=== PATIENT | female | born 1950 | race Caucasian/White ===

== ENCOUNTER → 2017-06-25 | Outpatient (CLI) | payer OTHER ==
[~2017-06-25] MED LIST: CITA20TA5 PO; DILT360C26 PO; IRBE300T16 PO; METO-93 PO
== END | disposition home or self-care (01) ==
LOC: CFH 08:37
PROVIDERS: ATTEND Specialist
DX: K76.0 Fatty (change of) liver, not elsewhere classified (principal); N28.1 Cyst of kidney, acquired
CPT/HCPCS: 76700

== ENCOUNTER → 2018-04-23 | Outpatient (CLI) | payer OTHER ==
[~2018-04-23] MED LIST changes: -CITA20TA5 PO; +CITA20TA6 PO
== END | disposition home or self-care (01) ==
LOC: CFH 14:33
PROVIDERS: ATTEND Obstetrics & Gynecology Female Pelvic Medicine and Reconstructive Surgery
DX: Z12.31 Encounter for screening mammogram for malignant neoplasm of breast (principal); Z13.820 Encounter for screening for osteoporosis; M85.88 Other specified disorders of bone density and structure, other site; Z78.0 Asymptomatic menopausal state
CPT/HCPCS: 77080; 77067

== ENCOUNTER → 2018-09-30 | Outpatient (CLI) | payer OTHER | END | disposition home or self-care (01) | LOC: CFH 15:19 | PROVIDERS: ATTEND Physician Assistant | DX: M25.521 Pain in right elbow (principal); G89.29 Other chronic pain ==

== ENCOUNTER 2019-04-28 06:56 | Outpatient (CLI) | payer MEDICARE | END 2019-04-28 23:59 | disposition home or self-care (01) | LOC: CFH 06:56 | PROVIDERS: ATTEND Family Medicine | DX: Z12.31 Encounter for screening mammogram for malignant neoplasm of breast (principal) | CPT/HCPCS: 77063; 77067 ==

== ENCOUNTER 2019-12-23 08:37 | Outpatient (CLI) | payer MEDICARE ==
[~2019-12-23 08:37] MED LIST changes: -IRBE300T16 PO; +IRBE300T8 PO
== END 2019-12-23 23:59 | disposition home or self-care (01) ==
LOC: RAD 08:37
PROVIDERS: ATTEND Internal Medicine Gastroenterology
DX: K21.9 Gastro-esophageal reflux disease without esophagitis (principal)
CPT/HCPCS: 74230